=== PATIENT | male | born 1940 | race Caucasian/White ===

== ENCOUNTER 2018-06-24 13:49 | Inpatient (IN) | payer OTHER ==
[2018-06-24 14:05] VITALS: BMI 31.6
--- NOTE | 2018-06-24 14:31 | PDOC ---
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 Gallardo for admission. Pt reported he had one episode of room spinning dizziness Sunday that caused him to fall and hit his head. He denied LOC or vomiting. He stated the room spinning lasted a minute. He numbness, weakness, chest pain, shortness of breath, visual changes, syncope. He admitted to left shoulder pain and bilateral elbow pain s/p fall. Allergies: NKDA PCP: Paulina Neuro: Mick Cardio: Lucio <Susie Higgins - Last Filed: 06/26/18 16:07> - General Chief Complaint: Injury Stated Complaint: SLIP AND FALL Time Seen by Provider: 06/24/18 14:31 NIH Stroke Scale - Last Known Well Date/Time & Onset Date Last Known Well: 06/24/18 Time Last Known Well: 15:17 - Initial Evaluation Level of consciousness: Alert Ask patient the month and their age: Answers both correctly Ask patient to open & close eyes; make fist and let go: Obeys both correctly Best gaze (horizontal eye movement): Normal Visual field testing: Partial hemianopia Facial paresis (Show teeth/raise eyebrows/close eyes tight): Minor paralysis ( flattened nasolabial fold, asymmetry on smiling) Motor Function: Left Arm: Normal Motor Function: Right Arm: Normal (extends arm 90 (or 45) degrees for 10 seconds without drift Motor Function: Left Leg: Normal (extends leg 30 degrees for 5 seconds without drift) Motor Function: Right Leg: Normal (extends leg 30 degrees for 5 seconds without drift) Limb Ataxia: No ataxia Sensory(Use pinprick test arms,legs,trunk,face/side to side): Normal Best language (Describe picture, name items, read sentences): No Aphasia Dysarthria (read several words): Normal articulation Extinction and Inattention: No abnormality - Total Score NIH Stroke Scale Score: 2 <Susie Higgins - Last Filed: 06/26/18 16:07> Past History <Liliana Barrera - Last Filed: 06/24/18 15:35> - Past Medical History CVA: Yes COPD: No - Suicide/Smoking/Psychosocial Hx Smoking History: Never smoked <Susie Higgins - Last Filed: 06/26/18 16:07> - Past Medical History Allergies/Adverse Reactions: Allergies Allergy/AdvReac Type Severity Reaction Status Date / Time No Known Allergies Allergy Verified 06/24/18 14:01 Home Medications: Ambulatory Orders Aspirin 81 mg PO DAILY 06/24/18 Atorvastatin Ca [Lipitor] 1 tab PO HS 06/24/18 Cholecalciferol (Vitamin D3) [Vitamin D3] 1 tab PO DAILY 06/24/18 Escitalopram Oxalate [Lexapro -] 1 tab PO HS 06/24/18 Hydrochlorothiazide 25 mg PO DAILY 06/24/18 Losartan Potassium 1 tab PO HS 06/24/18 [place]-3/Dha/Epa/Fish Oil [Fish Oil 1,360 mg Softgel] 1 tab PO DAILY 06/24/18 Carbidopa/Levodopa *Cr* 25/100 [Sinemet *Cr* 25/100 -] 1 combo PO TID 7 Days #7 tablet.er 06/25/18 Clopidogrel Bisulfate [Plavix -] 75 mg PO DAILY #30 tablet 06/25/18 Review of Systems - Review of Systems Able to Perform ROS?: Yes Comments:: 06/24/18 15:04 General: denied fever, chills, night sweats, generalized weakness. HEENT: denied sore throat, rhinorrhea, ear pain. Heart: denied chest pain, palpitations, syncope, lower extremity swelling, diaphoresis. Respiratory: denied shortness of breath, cough, sputum production, hemoptysis. Abdomen: denied abdominal pain, nausea, vomiting, diarrhea, constipation, blood in stool. : denied dysuria, increased urinary frequency, hematuria, urinary incontinence , flank pain. Back: denied back pain. Musculoskeletal: admitted to left elbow pain, right elbow pain, left shoulder pain. Neurological: admitted to dizziness. denied headache, numbness, tingling, weakness. Skin: denied rash, laceration, abrasion. <Mohsen Higginsa - Last Filed: 06/26/18 16:07> *Physical Exam - Vital Signs Last Vital Signs Temp Pulse Resp BP Pulse Ox 98.8 F 58 L 18 133/54 L 95 06/24/18 14:02 06/24/18 14:02 06/24/18 14:02 06/24/18 14:02 06/24/18 14:02 <Liliana Barrera - Last Filed: 06/24/18 15:35> - Vital Signs Last Vital Signs Temp Pulse Resp BP Pulse Ox 98.8 F 58 L 18 133/54 L 95 06/24/18 14:02 06/24/18 14:02 06/24/18 14:02 06/24/18 14:02 06/24/18 14:02 - Physical Exam Comments: 06/24/18 15:05 Constitutional: Well-nourished, Well-developed, appearing stated age. HEENT: head is normocephalic, atraumatic. no scalp hematomas. EOMI. PERRLA. Neck: supple. Full ROM. Heart: regular rhythm. no murmurs, rubs or gallops. Lungs: clear to auscultation bilaterally. no crackles, rhonchi or wheezing. no stridor. Abdomen: soft, nontender. normal bowel sounds. no rebound, guarding, masses. Extremities: Peripheral pulses intact. No lower extremity edema. no swelling to bilateral elbow. Full ROM bilateral elbow. Full ROM left shoulder. Neurological: Alert. Oriented x3. CN2-12 intact. 5/5 strength all other extremities. Full sensation all extremities and bilateral face. Romberg negative. Finger to nose normal. Gait normal. Psych: awake, alert, oriented x3. Follows commands. Answers questions appropriately. <Susie Higgins - Last Filed: 06/26/18 16:07> Moderate Sedation - Procedure Monitoring Vital Signs: Procedure Monitoring Vital Signs Temperature 98.8 F 06/24/18 14:02 Pulse Rate 58 L 06/24/18 14:02 Respiratory Rate 18 06/24/18 14:02 Blood Pressure 133/54 L 06/24/18 14:02 O2 Sat by Pulse Oximetry (%) 95 06/24/18 14:02 <Liliana Barrera - Last Filed: 06/24/18 15:35> - Procedure Monitoring Vital Signs: Procedure Monitoring Vital Signs Temperature 98.8 F 06/24/18 14:02 Pulse Rate 58 L 06/24/18 14:02 Respiratory Rate 18 06/24/18 14:02 Blood Pressure 133/54 L 06/24/18 14:02 O2 Sat by Pulse Oximetry (%) 95 06/24/18 14:02 <Susie Higgins - Last Filed: 06/26/18 16:07> ED Treatment Course - LABORATORY CBC & Chemistry Diagram: 06/24/18 14:58 06/24/18 15:20 - ADDITIONAL ORDERS Additional order review: Laboratory Results 06/24/18 14:58 Blood Type Cancelled Antibody Screen Cancelled <Liliana Barrera - Last Filed: 06/24/18 15:35> - LABORATORY CBC & Chemistry Diagram: 06/25/18 06:05 06/25/18 06:05 <Susie Higgins - Last Filed: 06/26/18 16:07> Medical Decision Making - Medical Decision Making 06/24/18 15:06 77 year old male with PMH HTN, HLD, CVA (x8 years ago) presented to ED for dizziness episode that caused a fall involving head injury on Sunday. Pt seen by PCP Dr. Gallardo today, sent for admission. Initial Vital Signs Temp Pulse Resp BP Pulse Ox 98.8 F 58 L 18 133/54 L 95 06/24/18 14:02 06/24/18 14:02 06/24/18 14:02 06/24/18 14:02 06/24/18 14:02 Afebrile. Borderline bradycardia, asymptomatic. No tachypnea. Mild systolic HTN Diastolic Hypotension. No hypoxia on room air. o Labs ordered: CBC, CMP, lipids, troponin, T/S, coags, UA c Imaging ordered: CT head noncontrast, CXR, XR left shoulder, XR right elbow, XR left elbow g Medications ordered: none EKG performed at 1448: rate 61, regular rhythm, left axis, RBBB, left anterior fascicular block, nonspecific ST changes. Comparison EKG performed 08/29/2001 at 1051: rate 55, regular rhythm, left axis , nonspecific ST changes. 06/24/18 15:[address] Barton about the case, he stated he will consult. 06/24/18 16:11 CBC WBC 9.4 K/mm3 (4.0-10.0) 06/24/18 14:58 RBC 5.70 M/mm3 (4.00-5.60) H 06/24/18 14:58 Hgb y 17.2 GM/dL (11.7-16.9) H 06/24/18 14:58 Hct 48.7 % (35.4-49) 06/24/18 14:58 MCV 85.4 fl (80-96) 06/24/18 14:58 MCH 30.1 pg (25.7-33.7) 06/24/18 14:58 MCHC 35.3 g/dl (32.0-35.9) 06/24/18 14:58 RDW 13.9 % (11.9-15.9) 06/24/18 14:58 Plt Count 289 K/MM3 (134-434) 06/24/18 14:58 MPV 7.8 fl (7.5-11.1) 06/24/18 14:58 Absolute Neuts (auto) 6.1 K/mm3 (1.5-8.0) 06/24/18 14:58 Neutrophils % 65.1 % (42.8-82.8) 06/24/18 14:58 Lymphocytes % 23.4 % (8-40) 06/24/18 14:58 Monocytes % 10.0 % (3.8-10.2) 06/24/18 14:58 Eosinophils % 1.1 % (0-4.5) 06/24/18 14:58 Basophils % 0.4 % (0-2.0) 06/24/18 14:58 Nucleated RBC % 0 % (0-0) 06/24/18 14:58 No leukocytosis. Elevated hemoglobin. CMP Sodium 137 mmol/L (136-145) 06/24/18 15:20 Potassium 4.0 mmol/L (3.5-5.1) 06/24/18 15:20 Chloride 99 mmol/L (98-107) 06/24/18 15:20 Carbon Dioxide 28 mmol/L (21-32) 06/24/18 15:20 Anion Gap 10 MMOL/L (8-16) 06/24/18 15:20 BUN 18 mg/dL (7-18) 06/24/18 15:20 Creatinine 0.9 mg/dL (0.55-1.3) 06/24/18 15:20 Creat Clearance w eGFR > 60 (>60) 06/24/18 15:20 Random Glucose 111 mg/dL (74-106) H 06/24/18 15:20 Calcium 8.7 mg/dL (8.5-10.1) 06/24/18 15:20 Total Bilirubin 0.6 mg/dL (0.2-1) 06/24/18 15:20 AST 26 U/L (15-37) 06/24/18 15:20 ALT 51 U/L (13-61) 06/24/18 15:20 Alkaline Phosphatase 131 U/L (45-117) H 06/24/18 15:20 Troponin I < 0.02 ng/ml (0.00-0.05) 06/24/18 15:20 Total Protein 7.1 g/dl (6.4-8.2) 06/24/18 15:20 Albumin 3.4 g/dl (3.4-5.0) 06/24/18 15:20 Triglycerides 142 mg/dL (0-150) 06/24/18 15:20 Cholesterol 115 mg/dL (50-200) 06/24/18 15:20 HDL Cholesterol y 30 mg/dL (40-60) L 06/24/18 15:20 No electrolyte abnormalities. No MANUELITO. Normal troponin. Low HDL, otherwise normal lipids. Urine Test Results Urine Color Yellow 06/24/18 15:10 Urine Appearance Clear 06/24/18 15:10 Urine pH 5.0 (5.0-8.0) 06/24/18 15:10 Ur Specific [place] 1.020 (1.010-1.035) 06/24/18 15:10 Urine Protein Negative (NEGATIVE) 06/24/18 15:10 Urine Glucose (UA) Negative (NEGATIVE) 06/24/18 15:10 Urine Ketones Negative (NEGATIVE) 06/24/18 15:10 Urine Blood Negative (NEGATIVE) 06/24/18 15:10 Urine Nitrite Negative (NEGATIVE) 06/24/18 15:10 Urine Bilirubin Negative (<2.0 mg/dL) 06/24/18 15:10 Ur Leukocyte Esterase Negative (NEGATIVE) 06/24/18 15:10 No evidence of UTI. Pending imaging. 06/24/18 16:[address] head report: no change from coparison CT 05/15/14. chronic supratentorial and infratentorial infarcts. CXR report: no acute pathology. Pt to be admitted to Dr. Gallardo's service. Pending XRs. Coags hemolyzed, pending repeat. 06/24/18 17:42 c Left shoulder XR report: No acute pathology. c Left elbow report: No acute pathology. c Right elbow report: No acute pathology. 06/24/18 17:48 Lab called, reported coags QNS. Repeat ordered. <Susie Higgins - Last Filed: 06/26/18 16:07> *DC/Admit/Observation/Transfer <Liliana Barrera - Last Filed: 06/24/18 15:35> - Discharge Dispostion Decision to Admit order: Yes <Susie Higgins - Last Filed: 06/26/18 16:07> Diagnosis at time of Disposition: Dizziness, Other cerebrovascular disease, History of falling - Discharge Dispostion Condition at time of disposition: Stable
--- NOTE | 2018-06-24 14:55 | PDOC ---
Attending Attestation - Resident Resident Name: Susie Higgins - ED Attending Attestation I have performed the following: I have examined & evaluated the patient, The case was reviewed & discussed with the resident, I agree w/resident's findings & plan, Exceptions are as noted - HPI HPI: 77 yo M history HTN, HL, CVA presents s/p fall 2 days ago. As per son at bedside , patient had a dizzy spell where he felt the room spinning around him. He fell , hitting the left side of his head. The dizziness was self-limited. Patient is currently asymptomatic. Denies any weakness, numbness, headache, cp, SOB. Patient was sent by Dr. Gallardo in light of prior history of CVA, for CVA workup. - Physicial Exam PE: GENERAL: Awake, alert, and fully oriented, in no acute distress HEAD: No signs of trauma EYES: PERRLA, EOMI, sclera anicteric, conjunctiva clear ENT: Auricles normal inspection, hearing grossly normal, nares patent, oropharynx clear without exudates. Moist mucosa NECK: Normal ROM, supple, no lymphadenopathy, JVD, or masses LUNGS: Breath sounds equal, clear to auscultation bilaterally. No wheezes, and no crackles HEART: Regular rate and rhythm, normal S1 and S2, no murmurs, rubs or gallops ABDOMEN: Soft, nontender, normoactive bowel sounds. No guarding, no rebound. No masses EXTREMITIES: Normal range of motion, no edema. No clubbing or cyanosis. No cords, erythema, or tenderness NEUROLOGICAL: Cranial nerves II through XII grossly intact. Normal speech, normal gait. Motor and sensation intact SKIN: Warm, Dry, normal turgor, no rashes or lesions noted. - Medical Decision Making Pt with history prior CVA presents s/p fall following a dizzy spell. Currently asymptomatic. Will initiate CVA workup in ED and admit to Dr. Gallardo's service.
[2018-06-24 15:35] LABS: URINE APPEARANCE CLEAR; URINE BILIRUBIN NEGATIVE (<2.0 mg/dL); URINE COLOR YELLOW; URINE GLUCOSE (UA) NEGATIVE (NEGATIVE); URINE KETONE NEGATIVE (NEGATIVE); URINE LEUK ESTERASE NEGATIVE (NEGATIVE); URINE NITRITE NEGATIVE (NEGATIVE); URINE PROTEIN NEGATIVE (NEGATIVE)
[2018-06-24 15:38] LABS: BASO % 0.4 % (0-2.0); EOS % 1.1 % (0-4.5); HEMATOCRIT 48.7 % (35.4-49); HEMOGLOBIN 17.2 GM/dL (11.7-16.9); LYMPH % 23.4 % (8-40); MCH 30.1 pg (25.7-33.7); MCHC 35.3 g/dl (32.0-35.9); MEAN CELL VOLUME 85.4 fl (80-96); MEAN PLT VOLUME 7.8 fl (7.5-11.1); NEUT % 65.1 % (42.8-82.8); PLATELET COUNT 289 K/MM3 (134-434); RDW 13.9 % (11.9-15.9); WHITE BLOOD COUNT 9.4 K/mm3 (4.0-10.0)
[2018-06-24 15:55] LABS: ALBUMIN 3.4 g/dl (3.4-5.0); ALK PHOS 131 U/L (45-117); ANION GAP 10 MMOL/L (8-16); BILIRUBIN,TOTAL 0.6 mg/dL (0.2-1); BLOOD UREA NITROGEN 18 mg/dL (7-18); CALCIUM 8.7 mg/dL (8.5-10.1); CHLORIDE 99 mmol/L (98-107); CHOLESTEROL 115 mg/dL (50-200); CO2 28 mmol/L (21-32); CREATININE 0.9 mg/dL (0.55-1.3); GLUCOSE,RANDOM 111 mg/dL (74-106); HDL CHOLESTEROL 30 mg/dL (40-60); SGOT/AST 26 U/L (15-37); SGPT/ALT 51 U/L (13-61); SODIUM 137 mmol/L (136-145); TOT PROT 7.1 g/dl (6.4-8.2); TRIGLYCERIDES 142 mg/dL (0-150)
[2018-06-24 18:59] LABS: INR 1.07 (0.83-1.09); PROTHROMBIN TIME (PATIENT) 12.6 SEC (9.7-13.0)
[2018-06-24 19:01] LABS: ACTIVATED PTT 27.5 SECONDS (25.2-36.5)
[2018-06-24] MEDS ORDERED: ACETAMINOPHEN 325 MG TABLET (FP) PO PRN (20:11)
[2018-06-24] MEDS ORDERED: ATORVASTATIN CA 40 MG TABLET (FP) ONE (21:58)
[2018-06-24] MEDS ORDERED: ATORVASTATIN CA 40 MG TABLET (FP) PO SCH (22:00)
[2018-06-25 06:59] LABS: ALBUMIN 3.3 g/dl (3.4-5.0); ALK PHOS 128 U/L (45-117); ANION GAP 5 MMOL/L (8-16); BILIRUBIN,TOTAL 1.1 mg/dL (0.2-1); BLOOD UREA NITROGEN 17 mg/dL (7-18); CALCIUM 8.6 mg/dL (8.5-10.1); CHLORIDE 98 mmol/L (98-107); CO2 32 mmol/L (21-32); CREATININE 1.1 mg/dL (0.55-1.3); GLUCOSE,RANDOM 97 mg/dL (74-106); POTASSIUM 4.4 mmol/L (3.5-5.1); SGOT/AST 24 U/L (15-37); SGPT/ALT 44 U/L (13-61); SODIUM 136 mmol/L (136-145); TOT PROT 6.8 g/dl (6.4-8.2)
[2018-06-25 07:24] LABS: HEMATOCRIT 47.6 % (35.4-49); HEMOGLOBIN 16.6 GM/dL (11.7-16.9); MCH 30.3 pg (25.7-33.7); MEAN CELL VOLUME 86.5 fl (80-96); MEAN PLT VOLUME 7.4 fl (7.5-11.1); PLATELET COUNT 252 K/MM3 (134-434); WHITE BLOOD COUNT 10.4 K/mm3 (4.0-10.0)
--- NOTE | 2018-06-25 07:24 | HP ---
Admitting History and Physical - Primary Care Physician PCP: Maria Luz Gallardo - Admission Chief Complaint: SYNCOPE/FALL History of Present Illness: 77 Y/O MALE WHO COMES TO MY OFFICE WITH HIS SON BECAUSE OF A SYNCOPAL EPISODE AT HOME. NO LOC, NO WARNING PRIOR TO DIZZY AND FALL. H/O OF CVA AND HTN. History Source: Family Member Limitations to Obtaining History: Language Barrier - Past Medical History IN [employer]: Yes: CVA Cardiovascular: Yes: HTN - Smoking History Smoking history: Never smoked Home Medications - Allergies Allergies/Adverse Reactions: Allergies Allergy/AdvReac Type Severity Reaction Status Date / Time No Known Allergies Allergy Verified 06/24/18 14:01 - Home Medications Home Medications: Ambulatory Orders Aspirin 81 mg PO DAILY 06/24/18 Atorvastatin Ca [Lipitor] 1 tab PO HS 06/24/18 Cholecalciferol (Vitamin D3) [Vitamin D3] 1 tab PO DAILY 06/24/18 Escitalopram Oxalate [Lexapro -] 1 tab PO HS 06/24/18 Hydrochlorothiazide 25 mg PO DAILY 06/24/18 Losartan Potassium 1 tab PO HS 06/24/18 [place]-3/Dha/Epa/Fish Oil [Fish Oil 1,360 mg Softgel] 1 tab PO DAILY 06/24/18 Review of Systems - Review of Systems Constitutional: reports: Lethargy Eyes: reports: No Symptoms HENT: reports: No Symptoms Neck: reports: No Symptoms Cardiovascular: reports: No Symptoms Respiratory: reports: No Symptoms Gastrointestinal: reports: No Symptoms Genitourinary: reports: No Symptoms Musculoskeletal: reports: Muscle Weakness Integumentary: reports: No Symptoms Neurological: reports: Pre-Existing Deficit Endocrine: reports: No Symptoms Hematology/Lymphatic: reports: No Symptoms Psychiatric: reports: No Symptoms Physical Examination Vital Signs: Vital Signs Temperature 97.9 F 06/25/18 06:29 Pulse Rate 55 L 06/25/18 06:29 Respiratory Rate 18 06/25/18 06:29 Blood Pressure 121/56 L 06/25/18 06:29 O2 Sat by Pulse Oximetry (%) 97 06/25/18 04:05 Constitutional: Yes: Mild Distress Eyes: Yes: WNL HENT: Yes: WNL Neck: Yes: WNL Cardiovascular: Yes: Regular Rate and Rhythm Respiratory: Yes: WNL Gastrointestinal: Yes: Abdomen, Obese Renal/: Yes: WNL Musculoskeletal: Yes: WNL Extremities: Yes: WNL Edema: No Peripheral Pulses WNL: Yes Integumentary: Yes: WNL Wound/Incision: Yes: Clean/Dry Neurological: Yes: Pre-Existing Deficit ...Motor Strength: WNL Psychiatric: Yes: WNL Labs: CBC, BMP 06/25/18 06:05 Imaging - Results Chest X-ray: Report Reviewed X-ray: Report Reviewed Cat Scan: Report Reviewed Problem List - Problems (1) Dizziness Code(s): R42 - DIZZINESS AND GIDDINESS (2) History of falling Code(s): Z91.81 - HISTORY OF FALLING (3) Other cerebrovascular disease Code(s): I67.89 - OTHER CEREBROVASCULAR DISEASE Assessment/Plan MRI BRAIN NEUROLOGY W/UP ECHO, CARDIO EVAL ORTHOSTATIC HTN CHECK LABS PT EVAL SWALLOW EVAL
[2018-06-25] MEDS ORDERED: ASPIRIN 81 MG CHEWABLE TABLETS ONE (09:41)
[2018-06-25] MEDS ORDERED: ESCITALOPRAM OXALATE 10 MG TABLET (FP) ONE (09:41)
[2018-06-25] MEDS ORDERED: ESCITALOPRAM OXALATE 10 MG TABLET (FP) PO SCH (10:00)
[2018-06-25] MEDS ORDERED: ASPIRIN COATED 81 MG TABLET.EC PO SCH (10:00)
--- NOTE | 2018-06-25 10:59 | EKG ---
Test Reason : Blood Pressure : / mmHG Vent. Rate : 061 BPM Atrial Rate : 061 BPM P-R Int : 166 ms QRS Dur : 142 ms QT Int : 460 ms P-R-T Axes : 009 -46 -11 degrees QTc Int : 463 ms NORMAL SINUS RHYTHM RIGHT BUNDLE BRANCH BLOCK LEFT ANTERIOR FASCICULAR BLOCK BIFASCICULAR BLOCK MINIMAL VOLTAGE CRITERIA FOR LVH, MAY BE NORMAL VARIANT ABNORMAL ECG WHEN COMPARED WITH ECG OF 29-AUG-2001 10:51, (RBBB AND LEFT ANTERIOR FASCICULAR BLOCK) IS NOW PRESENT Confirmed by MD ISIDRA, XU ([id number]) on 06/25/2018 10:59:02 AM Referred By: Confirmed By:XU MINER MD
--- NOTE | 2018-06-25 11:16 | CON.CARD ---
Consult Consult Specialty:: Cardiology Referred by:: Dr. Gallardo Reason for Consultation:: Syncope - History of Present Illness Chief Complaint: Vertigo and fall History of Present Illness: 77 year-old man with a PMHx of HTN, HL, CVA 8 years ago presented to ED 2018 after a brief episode of vertigo and fall 2 days before. The patient had a brief episode (seconds) of dizzy spell where he felt the room spinning around him. He fell, hitting the left side of his head. The dizziness was resolved spontaneously and no recurrent episode since. He denies LOC, weakness, numbness, headache, palpitation, chest pain, shortness of breath, edema, orthospnea or PND. He was sent by Dr. Gallardo for CVA workup. ECG 06/24/2018 showed sinus rhythm with LAD and RBBB. Carotid duplex 06/24/2018 revealed moderate heterogeneous plaques in common carotid artery, internal and external carotid arteries L>R without hemodynamically significant stenosis. CT scan 06/24/2018 showed chronic supra and infratentorial infarcts without acute or interval changes. MRI and echocardiogram are pending. 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 Cardio/Vascular: Yes: HTN - Smoking History Smoking history: Never smoked Home Medications - Allergies Allergies/Adverse Reactions: Allergies Allergy/AdvReac Type Severity Reaction Status Date / Time No Known Allergies Allergy Verified 06/24/18 14:01 - Home Medications Home Medications: Ambulatory Orders Aspirin 81 mg PO DAILY 06/24/18 Atorvastatin Ca [Lipitor] 1 tab PO HS 06/24/18 Cholecalciferol (Vitamin D3) [Vitamin D3] 1 tab PO DAILY 06/24/18 Escitalopram Oxalate [Lexapro -] 1 tab PO HS 06/24/18 Hydrochlorothiazide 25 mg PO DAILY 06/24/18 Losartan Potassium 1 tab PO HS 06/24/18 [place]-3/Dha/Epa/Fish Oil [Fish Oil 1,360 mg Softgel] 1 tab PO DAILY 06/24/18 Review of Systems - Review of Systems Constitutional: reports: No Symptoms Eyes: reports: No Symptoms HENT: reports: No Symptoms Neck: reports: No Symptoms Cardiovascular: reports: No Symptoms Respiratory: reports: No Symptoms Gastrointestinal: reports: No Symptoms Genitourinary: reports: No Symptoms Breasts: reports: No Symptoms Reported Musculoskeletal: reports: No Symptoms Integumentary: reports: No Symptoms Neurological: reports: Dizziness, Syncope Endocrine: reports: No Symptoms Hematology/Lymphatic: reports: No Symptoms Psychiatric: reports: No Symptoms Vital Signs: Vital Signs Temperature 98.1 F 06/25/18 07:20 Pulse Rate 58 L 06/25/18 07:20 Respiratory Rate 18 06/25/18 07:20 Blood Pressure 144/57 L 06/25/18 07:20 O2 Sat by Pulse Oximetry (%) 95 06/25/18 07:20 General: Well developed. Well nourished. No acute distress. Head: Normocephalic. Atraumatic, Eyes: PERRLA, EOMI. Sclerae anicteric. Conjunctivae clear. Neck: Supple. No JVD. No bruits. Heart: Normal S1, S2: Regular rhythm and rate. No murmur. No gallop or rub. Lungs: Symmetrical air entry. Clear to auscultation. No crackles. No wheezing or rhonchi. Abdomen: Soft. Bowel sound positive. Non tender. No masses. Extremities: No edema. No clubbing or cyanosis. PD 2+, equal bilaterally. Neuro: Intact, no focal findings. AAO X3. - Other Data Labs, Other Data: CBC, BMP 06/25/18 06:05 06/25/18 06:05 INR, PTT INR 1.07 (0.83-1.09) 06/24/18 18:50 Troponin, BNP 06/24/18 15:20 Troponin I < 0.02 Troponin, BNP 06/24/18 15:20 Troponin I < 0.02 Imaging - Results EKG: Image Reviewed (Sinus rhythm. LAD. RBBB.) Assessment/Plan 77 year-old man with a PMHx of HTN, HL, CVA 8 years ago presented to ED 2018 after a brief episode of vertigo and fall 2 days before. The patient had a brief episode (seconds) of dizzy spell where he felt the room spinning around him. He fell, hitting the left side of his head. The dizziness was resolved spontaneously and no recurrent episode since. He denies LOC, weakness, numbness, headache, palpitation, chest pain, shortness of breath, edema, orthospnea or PND. He was sent by Dr. Gallardo for CVA workup. ECG 06/24/2018 showed sinus rhythm with LAD and RBBB. Carotid duplex 06/24/2018 revealed moderate heterogeneous plaques in common carotid artery, internal and external carotid arteries L>R without hemodynamically significant stenosis. CT scan 06/24/2018 showed chronic supra and infratentorial infarcts without acute or interval changes. MRI and echocardiogram are pending. Vertigo and fall. Not typical syncope from history. Stroke work up in process. Agree with echocardiogram May need Holter monitor and event monitor to rule out occult atrial fibrillation /flutter as out-patient. Out patient cardiac follow up.
--- NOTE | 2018-06-25 15:23 | ECHO ---
Name: JAZMYNE BRUCE Exam:Adult Echocardiogram Study Date: 06/25/2018 10:25 AM Age: 77 yrs Reason For Study: R/O EMBOLISM Height: 60 in Weight: 160 lb BSA: 1.7 m2 MMode/2D Measurements & Calculations IVSd: 1.0 cm Ao root diam: 3.1 cm LVIDd: 4.7 cm LA dimension: 3.5 cm LVIDs: 3.2 cm LVPWd: 0.96 cm EDV(Teich): 100.3 ml LVOT diam: 2.4 cm ESV(Teich): 39.6 ml Doppler Measurements & Calculations MV E max harshad: 60.7 cm/sec Ao V2 max: 261.3 cm/sec MV A max harshad: 79.0 cm/sec Ao max P.3 mmHg MV E/A: 0.77 Ao V2 mean: 200.7 cm/sec MV dec time: 0.27 sec Ao mean P.2 mmHg Ao V2 VTI: 52.3 cm AI P1/2t: 446.3 msec NURA(V,D): 1.3 cm2 AI max harshad: 230.8 cm/sec LV V1 max P.2 mmHg AI max P.3 mmHg LV V1 max: 74.7 cm/sec AI dec slope: 151.4 cm/sec2 Med Peak E' Harshad: 4.9 cm/sec Med E/e': 12.5 Lat Peak E' Harshad: 4.6 cm/sec Lat E/e': 13.3 Procedure A two-dimensional transthoracic echocardiogram with color flow and Doppler was performed. The study w as technically limited with all images being suboptimal in quality. The patient was in normal sinus rhyt hm during the exam. Left Ventricle The left ventricular size, thickness and function are normal. Ejection Fraction = 55-60%. Grade I rossana stolic dysfunction, (abnormal relaxation pattern). Right Ventricle The right ventricle is not well visualized. Atria Normal left and right atrial size and function. Mitral Valve The mitral valve is grossly normal. Tricuspid Valve The tricuspid valve is not well visualized. There was insufficient TR detected to calculate RV systol ic pressure. Aortic Valve There is moderate aortic sclerosis.;. Poor imaging study appears that has mild to moderate aortic mildred nosis on doppler but would request better study to accurately assess. Pulmonic Valve The pulmonic valve is not well visualized. Great Vessels The aortic root is normal size. Interpretation Summary The study was technically limited with all images being suboptimal in quality. The left ventricular size, thickness and function are normal Normal left and right atrial size and function. The mitral valve is grossly normal. There is moderate aortic sclerosis.; Poor imaging study appears that has mild to moderate aortic stenosis on doppler but would request bet ter study to accurately assess MD Isidro Wood 06/25/2018 03:22 PM
--- NOTE | 2018-06-25 16:22 | CONSULT ---
Consult - text type - Consultation Consultation Note: NEUROLOGY CONSULT APPRECIATED: Events reviewed and discussed with staff. Cardiology consult read and appreciated. Pt examined with son at bedside who aides in translation. 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 He lives with his and son. He ambulates independently without use of assistive devices. He is here for progressive slowing of gait over 8 years with recent fall backwards onto his head and L side with brief prodromal "dizziness" without LOC. PMHX: hx of CVA 8 years ago, HLD, depression, HTN, HLD Medications: ASA, atorvastatin, Vit D3, escitalopram, HCTZ, Losartan; and [place] 3 His son reports ever since his stroke 8 years ago, he has noticed his father's gait "slow down" progressively norman. over the past 4 years. He reports within the past two months, his father has had issues with constipation. His son witnessed his fall and reports his father was standing attempting to get into bed and was propelled backwards and hit his head and L side on the floor without LOC or awareness. CT scan of head (reviewed): chronic supratentorial and infratentorial infarcts Brain MRI (reviewed): Moderate, diffuse atrophy. Chronic B/L cerebellar infarcts. Left periventricular (caudate nucleus) and right internal capsule lacune. Carotid duplex: moderate calcification L >R without significant stenosis NINO: BP: 137/47 supine; 119/65 seated. No evidence of external head trauma (-) bruit, Cor reg, reduced neck ROM NEURO EXAM: Mentation/Speech: [facility]. [place]. [facility]. June 2018. No president corrected to TRUMP. Can spell WORLD and reversal. / recall at 3 CN II-CNXII: residual mild ptosis of R lid with mild R facial droop. Masked facies. Reduced rapid tongue mvmts. Gag ok. + glabella Motor: Right pronation drift. Min tremor right hand. Cogwheeling present with reinforcement R > L. Reduced BILL's with spread B/L. Strength normal. Brisk reflexes throughout. B/L Babinski signs Coordination: No FTN dystaxia. Romberg - Sensation: Normal vibration. Gait: Mild right circumduction. flexed, shuffling, festinating. 4 steps to correct retropulsion. Cannot complete turns. Impression: 1. 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 2. 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 3. Othostatic hypotension possibly due to autonomic dysfunction c/w Parkinson's Disease Suggest: Add plavix 75 mg qd. Follow Orthostatic BP's. May require lowering of BP meds Trial of L-Dopa 25/100 1/2 pill TID with meals x 1 week, then 1 pill TID with meals Speech therapy and Physical therapy for Gait Neuro f/u as outpatient for Rx of PD and (later) OMS Thank you very much. Shaun Barton MD
--- NOTE | 2018-06-25 19:11 | DS ---
Physical Examination Vital Signs: Vital Signs Temperature 98.8 F 06/25/18 14:49 Pulse Rate 58 L 06/25/18 16:49 Respiratory Rate 20 06/25/18 14:49 Blood Pressure 137/47 L 06/25/18 16:49 O2 Sat by Pulse Oximetry (%) 95 06/25/18 14:49 Findings/Remarks: Patient is a 77 y/o male with past medical history of CVA and HTN. Patient presented to PMD office with syncopal episode without LOC. Echocardiogram with EF 55-60%, troponin neg, EKG done, and patient was evaluated by cardiology. Head CT scan show chronic supratentorial and infratentorial infarcts noted and Brain MRI results reviewed. Patient was evaluated by neurology. On exam patient denies dizziness, chest pain, SOB, dyspnea. Xrays negative for fracture. Constitutional: Yes: Well Nourished, No Distress, Calm Eyes: Yes: Conjunctiva Clear HENT: Yes: Normocephalic Neck: Yes: Supple Cardiovascular: Yes: Regular Rate and Rhythm Respiratory: Yes: Regular, CTA Bilaterally Gastrointestinal: Yes: Normal Bowel Sounds, Soft Musculoskeletal: Yes: Muscle Weakness (RUE, h/o cva 8 yrs ago) Extremities: Yes: WNL Edema: No Neurological: Yes: Alert, Oriented Psychiatric: Yes: Alert, Oriented Labs: CBC, BMP 06/25/18 06:05 06/25/18 06:05 Laboratory Results - last 24 hr 06/25/18 06/25/18 06/25/18 06:05 06:05 06:05 WBC 10.4 H RBC 5.50 Hgb 16.6 Hct 47.6 MCV 86.5 MCH 30.3 MCHC 35.0 RDW 14.0 Plt Count 252 MPV 7.4 L Sodium 136 Potassium 4.4 Chloride 98 Carbon Dioxide 32 Anion Gap 5 L BUN 17 Creatinine 1.1 Creat Clearance w eGFR > 60 Random Glucose 97 Hemoglobin A1c % 5.8 Calcium 8.6 Total Bilirubin 1.1 H AST 24 ALT 44 Alkaline Phosphatase 128 H Total Protein 6.8 Albumin 3.3 L <Lashonda Whitney - Last Filed: 06/25/18 19:24> Vital Signs: Vital Signs Temperature 98.4 F 06/25/18 19:20 Pulse Rate 61 06/25/18 19:20 Respiratory Rate 17 06/25/18 19:20 Blood Pressure 132/72 06/25/18 19:20 O2 Sat by Pulse Oximetry (%) 97 06/25/18 19:20 Labs: CBC, BMP 06/25/18 06:05 06/25/18 06:05 <Maria Luz Gallardo - Last Filed: 06/26/18 14:44> Discharge Summary Reason For Visit: DIZZINESS FALL Current Active Problems Dizziness (Acute) History of falling (Acute) Other cerebrovascular disease (Acute) Procedures: Principal: Brain MRI. Head CT scan. Echocardiogram. EKG Hospital Course: see progress notes Laboratory Results - last 24 hr 06/25/18 06/25/18 06/25/18 06:05 06:05 06:05 WBC 10.4 H RBC 5.50 Hgb 16.6 Hct 47.6 MCV 86.5 MCH 30.3 MCHC 35.0 RDW 14.0 Plt Count 252 MPV 7.4 L Sodium 136 Potassium 4.4 Chloride 98 Carbon Dioxide 32 Anion Gap 5 L BUN 17 Creatinine 1.1 Creat Clearance w eGFR > 60 Random Glucose 97 Hemoglobin A1c % 5.8 Calcium 8.6 Total Bilirubin 1.1 H AST 24 ALT 44 Alkaline Phosphatase 128 H Total Protein 6.8 Albumin 3.3 L Active Medications Generic Name Dose Route Start Last Admin Trade Name Freq PRN Reason Stop Dose Admin Acetaminophen 650 mg 06/24/18 20:11 Tylenol - PO Q6H PRN FEVER Aspirin 81 mg 06/25/18 10:00 06/25/18 09:49 Ecotrin - PO 81 mg DAILY ERWIN Administration Atorvastatin Calcium 40 mg 06/24/18 22:00 06/24/18 22:13 Lipitor - PO 40 mg HS ERWIN Administration Clopidogrel Bisulfate 75 mg 06/26/18 10:00 Plavix - PO DAILY ERWIN Escitalopram Oxalate 10 mg 06/25/18 10:00 06/25/18 09:49 Lexapro - PO 10 mg DAILY ERWIN Administration - Home Medications Comprehensive Discharge Medication List: Ambulatory Orders Aspirin 81 mg PO DAILY 06/24/18 Atorvastatin Ca [Lipitor] 1 tab PO HS 06/24/18 Cholecalciferol (Vitamin D3) [Vitamin D3] 1 tab PO DAILY 06/24/18 Escitalopram Oxalate [Lexapro -] 1 tab PO HS 06/24/18 Hydrochlorothiazide 25 mg PO DAILY 06/24/18 Losartan Potassium 1 tab PO HS 06/24/18 [place]-3/Dha/Epa/Fish Oil [Fish Oil 1,360 mg Softgel] 1 tab PO DAILY 06/24/18 <Lashonda Whitney - Last Filed: 06/25/18 19:24> - Home Medications Comprehensive Discharge Medication List: Ambulatory Orders Aspirin 81 mg PO DAILY 06/24/18 Atorvastatin Ca [Lipitor] 1 tab PO HS 06/24/18 Cholecalciferol (Vitamin D3) [Vitamin D3] 1 tab PO DAILY 06/24/18 Escitalopram Oxalate [Lexapro -] 1 tab PO HS 06/24/18 Hydrochlorothiazide 25 mg PO DAILY 06/24/18 Losartan Potassium 1 tab PO HS 06/24/18 [place]-3/Dha/Epa/Fish Oil [Fish Oil 1,360 mg Softgel] 1 tab PO DAILY 06/24/18 Carbidopa/Levodopa *Cr* 25/100 [Sinemet *Cr* 25/100 -] 1 combo PO TID 7 Days #7 tablet.er 06/25/18 Clopidogrel Bisulfate [Plavix -] 75 mg PO DAILY #30 tablet 06/25/18 <Maria Luz Gallardo - Last Filed: 06/26/18 14:44> Condition: Stable - Instructions Diet, Activity, Other Instructions: Patient instructed to follow up with PMD in 1 week Follow up with Neurology Dr. Barton in 1 week Continue with Losartan for BP meds, hold HCTZ until follow up with Dr. Rouse cardiology if dizziness, chest pain, SOB or recurrent falls occur return to ED to start plavix and L-dopa Referrals: Shaun Barton MD [Staff Physician] - Maria Luz Gallardo MD [Staff Physician] - Disposition: HOME
[2018-06-25 19:35] VITALS: BP 132/72; PULSE 61; TEMP 98.4
[2018-06-26] MEDS ORDERED: CLOPIDOGREL BISULFATE 75 MG TABLET (FP) PO SCH (10:00)
== END 2018-06-25 19:33 | disposition home or self-care (01) | DRG 57 ==
LOC: JER 13:49 → JERBED 16:44
PROVIDERS: ADMIT Family Medicine; ATTEND Family Medicine
DX: G20 Parkinson's disease (principal); G81.91 Hemiplegia, unspecified affecting right dominant side; I45.2 Bifascicular block; E78.5 Hyperlipidemia, unspecified; I10 Essential (primary) hypertension; I45.10 Unspecified right bundle-branch block; R42 Dizziness and giddiness; I95.1 Orthostatic hypotension; R27.0 Ataxia, unspecified; Z91.81 History of falling
CPT/HCPCS: 36415; 70450-TC; 70551-TC; 71046-TC-FY; 73030-TC-LT-FY; 73070-TC-LT-FY; 73070-TC-RT-FY; 80053; 81003; 82465; 83036; 83718; 83721; 84478; 84484; 85025; 85027; 85610; 85730; 86900; 93005; 93010; 93306-TC; 93880-TC; 99285-25